=== PATIENT | male | born 1995 | race Caucasian/White ===

== ENCOUNTER 2024-10-20 00:13 | Emergency (ER) | payer MEDICAID, SELFPAY ==
[2024-10-20 00:13] VITALS: BMI 30.8
[2024-10-20 00:32] VITALS: BP 156/82; PULSE 100; RESP 18; TEMP 36.7; O2SAT 100
--- NOTE | 2024-10-20 01:10 | EDNOTE_ITS ---
<Statement entered by Damaris Hope MD - 10/20/24 18:56> As co-signing physician, I was present and available for consult prn. I concur with the plan and care as documented by the midlevel provider. ED Dental RME/HPI General Chief complaint: Dental/Oral/Throat Stated complaint: LEFT DENTAL PAIN AND SWELLING Time Seen by Provider: 10/20/24 00:59 Arrival date/time: 10/20/24 00:13 RME / HPI RME / HPI Narrative: 29-year-old male with a past medical history of dental decay presents to the ED with a complaint of dental pain. He states that 2 of his teeth broke off while eating the other day. He denies any fever, chills, nausea or vomiting but states he noticed some left-sided facial swelling. He is waiting for his employer dental insurance to kick in. Related Data Previous Rx's ?Medication ?Instructions ?Recorded hydrocodone 5 mg-acetaminophen 325 1 tab PO Q6H PRN pa in #60 tabs 07/19/ mg tablet (Atkinson) dicyclomine 20 mg tablet 20 mg PO BID #10 tabs amoxicillin 875 mg tablet 875 mg PO BID #20 tabs 10/20 ibuprofen 600 mg tablet 600 mg PO Q8H PRN pain #15 t abs 10/20/24 Allergies Allergy/AdvReac Type Severity Reaction Status Date / Time No Known Allergies Allergy Verified 10/13/23 13:15 Review of Systems Review of Systems Systems Reviewed: All systems reviewed, normal except as documented Past Medical History Past Medical History NEUROLOGIC: Negative Seizures CARDIAC: Negative Congestive Heart Failure RESPIRATORY: Negative Chronic Obstructive Pulmonary Disease (COPD) GENITOURINARY: Negative Renal Disease ENDOCRINE: Negative Diabetes Mellitus Type 1 or Diabetes Mellitus Type 2 OTHER HISTORY: Negative Blood Transfusions, Blood Transfusion Reaction or Anesthesia Reactions Social History SMOKING STATUS: Never smoker ED Exam Narrative Physical exam: A&O, afebrile and non-toxic appearing 29-year-old male, no acute distress. Lung are clear, RRR, Abdomen is non-distended. Moves all extremities well. Tooth #19, #30, and #14 all with severe decay down to the gumline. No obvious gumline abscess noted. Course Course Course Narrative: Patient was given ibuprofen 600 mg p.o. Quality Measures none Orders Category Date Time Status Ibuprofen Tab [Motrin Tab] Med 10/20/24 01:10 Discontinued 600 mg PO X1 ONE Vital Signs Vital signs: Vital Signs Temperature 98.1 F 10/20/24 00:32 Pulse Rate 100 10/20/24 00:32 Respiratory Rate 18 10/20/24 00:32 Blood Pressure 156/82 H 10/20/24 00:32 Pulse Oximetry (%) 100 10/20/24 00:32 Oxygen Delivery Method Room Air 10/20/24 00:32 Dental / Oral MDM Narrative MDM Narrative:: Symptoms, exam and diagnostic studies are consistent with: Dental caries/decay to multiple teeth. Patient was discharged home in stable condition. Patient/family advised to follow-up with their PCP in 24-48 hours. Encouraged to return to the ED for any new or worsening symptoms. Patient data External records reviewed:: None Clinical information provided by:: patient Social determinants that could affect healthcare access:: none Patient has the following chronic illnesses:: N/A How is presenting disease/condition affected by chronic disease/condition?: no chronic disease Evaluation data The following diagnostics were reviewed and interpreted by me:: other (specify) (N/A) Lab and/or radiology exams considered but not ordered:: N/A Interpretation Summary: N/A Medications / Prescriptions Medications or Prescriptions considered but not ordered:: N/A Medication administrations:: Medication Administration History Discontinued Medications Ibuprofen (Ibuprofen Tab 600 Mg Tablet) 600 mg PO X1 ONE Stop: 10/20/24 01:11 Last Admin: 10/20/24 01:27 Dose: 600 mg Documented By: BD N/A Consultations Consultation(s) initiated? (list below): No Diagnosis Dental Differential Diagnosis: gingival abscess, dental caries, toothache and dental abscess Most likely diagnosis given after review of the tests above:: Dental abscess Admission Indicated Admission indicated?: not indicated Explain why admission is indicated or not indicated:: Stable for discharge Admission Request Was there a request for admission?: No Admission Attestation Admission request attestation: N/A Disposition Plan Disposition Plan: Discharge Discharge Attestation Discharge Attestation: The patient and all family members were given an opportunity to ask questions and understood the discharge instructions. Discharge instructions specifically effects, indications for sooner follow up or return to the emergency department, and the expected course of current diagnosis. Patient condition: Stable Discharge Plan Plan Patient Disposition: HOME (Self Care) Discharge Disposition comment: Stable Prescriptions/Referrals Prescriptions/Med Rec: New amoxicillin 875 mg tablet 875 mg PO BID Qty: 20 0RF ibuprofen 600 mg tablet 600 mg PO Q8H PRN (Reason: pain) Qty: 15 0RF No Action hydrocodone-acetaminophen [Atkinson] 5-325 mg tablet 1 tab PO Q6H MDD 8 PRN (Reason: pain) Qty: 60 0RF dicyclomine 20 mg tablet 20 mg PO BID Qty: 10 0RF Problem List Clinical Impression: Dental abscess Patient/Caregiver Discharge Instructions Education Materials: ED Dental Abscess Additional Instructions: Take the antibiotics as prescribed and complete the course even though you may be feeling better. Follow-up with your dentist as soon as possible. Follow-up with your primary care physician in 24 to 48 hours. Return to the ED for any new or worsening symptoms. Print Language: Icelandic Stand Alone Forms: [facility] Award Info., Patient Portal Info Letter PA/ANANYA Supervising Physician PA/ANANYA Supervising Physician: Dr. Hope
[2024-10-20] MEDS: IBUPROFEN TAB 600 MG TABLET PO (01:27)
== END 2024-10-20 02:07 | disposition home or self-care (01) ==
PROVIDERS: Emergency Provider Emergency Medicine; PCP Family Medicine
DX: K04.7 Periapical abscess without sinus (principal)
CPT/HCPCS: 99282; A9270